=== PATIENT | male | born 1995 | race African-American/Black ===

== ENCOUNTER 2016-09-04 13:46 | Emergency (ER) | payer SELFPAY ==
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
[~2016-09-04 13:46] MED LIST: HYDROCORTISONE 2.5% TOP; KEFLEX PO; KEFLEX500 MG PO; VISTARIL PO
== END 2016-09-04 16:32 | disposition home or self-care (01) ==
LOC: CED 13:46
DX: S52.502A Unspecified fracture of the lower end of left radius, initial encounter for closed fracture (principal); S52.602A Unspecified fracture of lower end of left ulna, initial encounter for closed fracture; W18.30XA Fall on same level, unspecified, initial encounter; Y92.410 Unspecified street and highway as the place of occurrence of the external cause
CPT/HCPCS: 29125; 73030; 73060; 73090; 96372; 99283; J2270; J2550